=== PATIENT | female | born 1990 | race Caucasian/White ===

== ENCOUNTER 2023-09-11 10:29 | Emergency (ER) | payer BC, OTHER ==
[~2023-09-11] VITALS: Ht 165.1 cm; Wt 59.0 kg
[2023-09-11] MEDS ORDERED: MECLIZINE HCL 25 MG TABLET ONE (11:07)
[2023-09-11 11:11] LABS: BASOPHILS % (AUTO) 0.6 % (0.0-2.0); EOSINOPHILS % (AUTO) 1.1 % (0.0-6.0); HEMATOCRIT 41 % (33-45); HEMOGLOBIN 13.5 g/dL (11.5-14.8); LYMPHOCYTES # (AUTO) 1.9 K/uL (0.8-4.8); LYMPHOCYTES % (AUTO) 51.5 % (20.0-44.0); MEAN CORPUSCULAR HEMOGLOBIN 30 PG (26.0-33.0); MEAN CORPUSCULAR HGB CONC 33 g/dl (31.0-36.0); MEAN CORPUSCULAR VOLUME 91 fL (82-100); MONOCYTES # (AUTO) 0.3 K/uL (0.1-1.30); MONOCYTES % (AUTO) 7.5 % (2.0-12.0); NEUTROPHILS # (AUTO) 1.5 K/uL (1.8-8.9); NEUTROPHILS % (AUTO) 39.3 % (43.0-81.0); PLATELET COUNT (AUTO) 202 K/uL (150-450); RED BLOOD CELL COUNT(AUTO) 4.44 MIL/uL (4.0-5.2); RED CELL DISTRIBUTION WIDTH 13.3 % (11.5-15.0); WHITE BLOOD COUNT (AUTO) 3.8 K/uL (4.3-11.0)
[2023-09-11] MEDS: IV NS 0.9% 1,000 ML BAG IV ONE (11:12)
[2023-09-11 11:21] LABS: CALCIUM, SERUM 9.1 mg/dL (8.5-10.1); CARBON DIOXIDE 24 mmol/L (21-32); CHLORIDE 104 mmol/L (98-107); CREATININE 0.7 mg/dL (0.6-1.3); GLUCOSE 107 mg/dL (74-106); MAGNESIUM 1.9 mg/dL (1.8-2.4); POTASSIUM 3.6 mmol/L (3.5-5.1); SODIUM SERUM 137 mmol/L (136-145); UREA NITROGEN, BLOOD 9 mg/dL (7-18)
[2023-09-11 11:24] LABS: INR 0.94 (0.91-1.10); PARTIAL THROMBOPLASTIN TIME 24.7 SEC (24.3-34.3); PROTHROMBIN TIME 9.7 SECS (9.2-11.1)
[2023-09-11] MEDS: MECLIZINE HCL 12.5 MG TABLET PO ONE (11:26)
[2023-09-11 12:40] LABS: PREGNANCY TEST URINE QUAL NEGATIVE (NEGATIVE)
[2023-09-11] MEDS ORDERED: KETOROLAC TROMETHAMINE 15 MG/ML VIAL ONE (13:36)
[2023-09-11] MEDS: KETOROLAC TROMETHAMINE 15 MG/ML VIAL IV ONE (13:37)
[2023-09-11] MEDS: LORAZEPAM INJ 2 MG/ML VIAL IV ONE (14:26)
[2023-09-11] MEDS ORDERED: MAG HYDROX/AL HYDROX/SIMETH 30 ML UDC ONE (14:28)
[2023-09-11] MEDS ORDERED: FAMOTIDINE/PF INJ 20 MG/2 ML VIAL IV ONE (14:28)
[2023-09-11] MEDS ORDERED: LORAZEPAM INJ 2 MG/ML VIAL ONE (14:29)
[2023-09-11] MEDS: MAG HYDROX/AL HYDROX/SIMETH 30 ML UDC PO ONE (14:40)
[2023-09-11] MEDS: FAMOTIDINE/PF INJ 20 MG/2 ML VIAL IV ONE (14:41)
[2023-09-11] MEDS ORDERED: HYDR25CA PO (15:11)
[2023-09-11 15:43] VITALS: BP 123/86; TEMP 98.2; O2SAT 100
== END 2023-09-11 15:51 | disposition home or self-care (01) ==
LOC: ER 10:45
DX: R07.9 Chest pain, unspecified (principal); F41.9 Anxiety disorder, unspecified
CPT/HCPCS: 99285; 96374; 70450; 71045; 96361; 96375; 93005; 85025; 80048; 83735; 85378; 84703; 36415; 84484; 85730; J8597; J2060; J3490; J1885